=== PATIENT | female | born 1955 | race Caucasian/White ===

== ENCOUNTER 2020-03-24 18:47 | Emergency (ER) | payer BC ==
--- NOTE | 2020-03-24 19:07 | ER Document Report ---
ED Medical Screen (RME) - General Chief Complaint: Chest Pain > 30 Stated Complaint: CHEST PAIN Time Seen by Provider: 03/24/20 19:02 Mode of Arrival: Ambulatory Information source: Patient Notes: 64-year-old female presents to ED for complaint of chest pressure and heaviness between 5 and 530 this evening. She states that now she has a shakiness like she is got a fever but she does not have a fever she still feels pressure in her chest she had numbness and tingling down her left arm to her fingers. Denies any history of heart attacks, she states that the doctor just put her on lisinop ril for high blood pressure. She does not know how long she is added but she was just diagnosed. Denies history of high cholesterol. Denies any family history of [place]. I have greeted and performed a rapid initial assessment of this patient. A comprehensive ED assessment and evaluation of the patient, analysis of test results and completion of medical decision making process will be conducted by an additional ED providers. Past Medical History - General Information source: Patient - Social History Cigarette use (# per day): No Frequency of alcohol use: Social Drug Abuse: None Occupation: Retired Lives with: Family Family history: Reviewed & Not Pertinent - Past Medical History Cardiac Medical History: Reports: Hx Hypertension Pulmonary Medical History: Reports: Hx Asthma, Hx Bronchitis, Hx Pneumonia EENT Medical History: Reports: None Neurological Medical History: Reports: None Endocrine Medical History: Reports: None Renal/ Medical History: Reports: None Malignancy Medical History: Reports: Hx Skin Cancer - Is also GI Medical History: Reports: Hx Gastroesophageal Reflux Disease, Hx Colonoscopy, Hx Endoscopy Musculoskeltal Medical History: Reports None Skin Medical History: Reports None Psychiatric Medical History: Reports: None Traumatic Medical History: Reports: None Infectious Medical History: Reports: None Past Surgical History: Reports: Hx Hysterectomy, Hx Tubal Ligation - Immunizations Immunizations up to date: No Hx Diphtheria, Pertussis, Tetanus Vaccination: No History of Pneumococcal Vaccine: No History of Influenza Vaccine for 12/2018 - 06/2019 Season: Yes Physical Exam - Vital signs Vitals: Temp Pulse Resp BP Pulse Ox 98.5 F 86 20 174/102 H 98 03/24/20 18:52 03/24/20 18:52 03/24/20 18:52 03/24/20 18:52 03/24/20 18:52 Course - Vital Signs Vital signs: Temp Pulse Resp BP Pulse Ox 98.5 F 86 20 174/102 H 98 03/24/20 18:52 03/24/20 18:52 03/24/20 18:52 03/24/20 18:52 03/24/20 18:52
--- NOTE | 2020-03-24 19:07 | EKG REPORT ---
SEVERITY:- ABNORMAL ECG - SINUS RHYTHM PROBABLE LEFT ATRIAL ABNORMALITY NONSPECIFIC REPOL ABNORMALITY, DIFFUSE LEADS : Confirmed by: Flex Nobles MD 24-Mar-2020 19:06:50
[2020-03-24 19:31] LABS: ABSOLUTE EOSINOPHILS # (AUTO) 0.2 10^3/uL (0.0-0.6); ABSOLUTE LYMPHOCYTES (AUTO) 3.6 10^3/uL (0.5-4.7); ABSOLUTE MONOCYTES (AUTO) 0.6 10^3/uL (0.1-1.4); ABSOLUTE NEUT (AUTO) 2.6 10^3/uL (1.7-8.2); BASOPHILS % (AUTO) 0.5 % (0-2); EOSINOPHILS % (AUTO) 2.2 % (0-6); HEMATOCRIT 36.7 % (36.0-47.0); HEMOGLOBIN 12.5 g/dL (12.0-15.5); MEAN CORPUSCULAR HEMOGLOBIN 30.7 pg (27.0-33.4); MEAN CORPUSCULAR HGB CONC 34.1 g/dL (32.0-36.0); MEAN CORPUSCULAR VOLUME 90 fl (80-97); PLATELET COUNT 330 10^3/uL (150-450); RED BLOOD COUNT 4.07 10^6/uL (3.72-5.28); RED CELL DISTRIBUTION WIDTH 11.7 % (11.5-14.0); SEGMENTED NEUTROPHILS % (AUTO) 36.3 % (42-78); TOTAL CELLS COUNTED % (AUTO) 100 %
[2020-03-24 19:47] LABS: ALBUMIN 4.7 g/dL (3.5-5.0); ALKALINE PHOSPHATASE 59 U/L (38-126); ANION GAP 6 (5-19); ASPARTATE AMINO TRANSFERASE 26 U/L (14-36); BILIRUBIN,DIRECT 0.1 mg/dL (0.0-0.4); BILIRUBIN,TOTAL 0.3 mg/dL (0.2-1.3); BLOOD UREA NITROGEN 16 mg/dL (7-20); CALCIUM 10.1 mg/dL (8.4-10.2); CARBON DIOXIDE 35 mmol/L (22-30); CHLORIDE 99 mmol/L (98-107); GLUCOSE 100 mg/dL (75-110); POTASSIUM 4.3 mmol/L (3.6-5.0); TOTAL PROTEIN 7.6 g/dL (6.3-8.2)
--- NOTE | 2020-03-24 20:25 | RADIOLOGY REPORT (SQ) ---
EXAM DESCRIPTION: XR CHEST 2 VIEWS COMPLETED DATE/TME: 03/24/2020 19:47 CLINICAL HISTORY: 64 years, Female, Chest pain radiating down the left arm COMPARISON: None. NUMBER OF VIEWS: 2 TECHNIQUE: Views of the chest were obtained LIMITATIONS: None. FINDINGS: The heart size is within normal limits. Aortic calcifications are noted. There is mild basilar linear atelectasis or scarring. There is no airspace consolidation. Is a 6 mm nodular opacity within the periphery of the right upper lung zone, second anterior and fourth posterior intercostal spaces. This nodule is relatively dense and could represent a calcified granuloma, however more definitive catheterization with chest CT is recommended to exclude a noncalcified nodule. There is no evidence of pleural effusion or pneumothorax. No significant bony abnormality is seen. IMPRESSION: Small nodular opacity periphery of the right upper lung zone. Additional evaluation with chest CT is recommended. copyright 2010 [employer]- All Rights Reserved
--- NOTE | 2020-03-24 21:36 | ER Document Report ---
ED General - General Chief Complaint: Chest Pain Stated Complaint: CHEST PAIN Time Seen by Provider: 03/24/20 19:02 Primary Care Provider: DOYLE CALDERON FNP [Primary Care Provider] - Follow up as needed Mode of Arrival: Ambulatory - [facility] Notes: 64-year-old female presents with chest pain. Patient states this evening between 5-5:30 PM she developed left-sided/central chest pain described as a pressure and heaviness. The heaviness radiated down her left arm and caused heidy e tingling. She states that she additionally felt as if she was going to faint and her legs "felt woozy", she did not have any loss of consciousness. States that she was lying on the couch when the chest pain started. She states she has ongoing heaviness. Denies shortness of breath. She denies previous cardiac history. States she has a history of high blood pressure, takes 10 mg lisinopril which is a fairly recent new medication. She denies history of diabetes. She is a non-smoker. She denies a family history of cardiac disease. - Related Data Allergies/Adverse Reactions: No Known Allergies Allergy (Unverified 03/24/20 19:35) Past Medical History - General Information source: Patient - Social History Smoking Status: Never Smoker Cigarette use (# per day): No Frequency of alcohol use: Occasional Drug Abuse: None Occupation: Retired Lives with: Family Family History: denies: CAD - Past Medical History Cardiac Medical History: Reports: Hx Hypertension Pulmonary Medical History: Reports: Hx Asthma, Hx Bronchitis, Hx Pneumonia EENT Medical History: Reports: None Neurological Medical History: Reports: None Endocrine Medical History: Reports: None Renal/ Medical History: Reports: None Malignancy Medical History: Reports: Hx Skin Cancer - Is also GI Medical History: Reports: Hx Gastroesophageal Reflux Disease, Hx Colonoscopy, Hx Endoscopy Musculoskeletal Medical History: Reports None Skin Medical History: Reports None Psychiatric Medical History: Reports: None Traumatic Medical History: Reports: None Infectious Medical History: Reports: None Past Surgical History: Reports: Hx Hysterectomy, Hx Tubal Ligation - Immunizations Immunizations up to date: No Hx Diphtheria, Pertussis, Tetanus Vaccination: No History of Pneumococcal Vaccine: No Review of Systems - Review of Systems Constitutional: denies: Fever EENT: No symptoms reported Cardiovascular: Chest pain Respiratory: denies: Short of breath Gastrointestinal: denies: Abdominal pain, Nausea, Vomiting Genitourinary: No symptoms reported Female Genitourinary: No symptoms reported Musculoskeletal: No symptoms reported Skin: No symptoms reported Hematologic/Lymphatic: No symptoms reported Neurological/Psychological: Tingling Physical Exam - Vital signs Vitals: Temp Pulse Resp BP Pulse Ox 98.5 F 86 20 174/102 H 98 03/24/20 18:52 03/24/20 18:52 03/24/20 18:52 03/24/20 18:52 03/24/20 18:52 - General General appearance: Appears well, Alert In distress: None - HEENT Head: Normocephalic, Atraumatic Extraocular movements intact: Yes Pupils: PERRL - Respiratory Chest status: Nontender Breath sounds: Normal - Cardiovascular Rhythm: Regular Heart sounds: Normal auscultation Normal capillary refill: Yes - Abdominal Tenderness: Nontender - Extremities General lower extremity: No: Edema - Neurological Neuro grossly intact: Yes Cognition: Normal Orientation: AAOx4 Speech: Normal Cranial nerves: Normal Motor strength normal: LUE, RUE, LLE, RLE Sensory: Normal - Psychological Associated symptoms: Normal affect - Skin Skin Temperature: Warm Course - Re-evaluation Re-evalutation: 64-year-old female history of hypertension with no previous cardiac history here for chest pressure onset at rest. On exam patient is alert and well-appearing, she is hypertensive but otherwise hemodynamically stable. Heart RRR, lungs clear, neurologically intact. Her initial EKG from triage is significant for depressions in V2 through V6 with T wave inversions II/III/aVL, no STEMI. Highly concern for cardiac etiology at this time. Her age and history of hypertension put her at risk. Will start with aspirin and nitro and assess response, serial EKGs. Will obtain CTA chest to rule out PE and dissection, though less favored at this time. 03/24/20 22:54 Repeat EKG obtained after nitro and improvement in chest pain, does show dynamic changes, depressions V3 through V6 are less prominent 03/24/20 23:35 Interestingly, troponin is neg x2. Second trop taken 5h post onset of pain Discussed case with Dr. Dumont component technician for cardiology. States that patient ultimately needs a cath given her dynamic EKG changes. Could potentially have a nuclear stress test, however unable to be performed here tomorrow. 03/24/20 23:47 Patient updated on results and plan so far, states that chest pain has greatly improved, though still slightly present, will try another nitro. Remains hemodynamically stable. 03/24/20 23:50 Called [facility] transfer center to discuss with cardiology component technician 03/25/20 00:15 Patient accepted in transfer by Dr King 03/25/20 00:30 CTA chest report available. No thoracic dissection or aneurysm, no PE. Pulmonary nodules present right middle and lower lobe. Patient was updated on the results of the CTA, she was advised to have outpatient follow-up in 6 months for repeat scan. She verbalized understanding. She remains hemodynamically stable. 03/25/20 03:11 Third troponin negative 03/25/20 03:17 Care to be turned over, pending bed assignment at [facility] - Vital Signs Vital signs: Temp Pulse Resp BP Pulse Ox 98.5 F 86 20 174/102 H 99 03/24/20 18:52 03/24/20 18:52 03/24/20 18:52 03/24/20 18:52 03/24/20 19:08 - Laboratory Results Result Diagrams: 03/24/20 19:15 03/24/20 19:15 Laboratory Results Interpreted: 03/24/20 03/24/20 19:15 19:15 Lymph % (Auto) 52.0 H Seg Neutrophils % 36.3 L Carbon Dioxide 35 H Critical Laboratory Results Reviewed: No Critical Results - Radiology Results Critical Radiology Results Reviewed: No Critical Results - EKG Interpretation by Me Additional EKG results interpreted by me: EKG as interpreted by me. Sinus rhythm, rate 81. Narrow QRS, QTC within normal limits. ST segment depression V3 through V6. T wave inversions II, III, aVF. No STEMI. No previous available for comparison. 03/24/20 22:54 Repeat EKG obtain status post nitro. Normal sinus rhythm, rate 65, narrow QRS, QTC within normal limits. ST segment depression less prominent V3 through V6. No STEMI. Discharge - Discharge Clinical Impression: Unstable angina Disposition: [facility] Referrals: DOYLE CALDERON FNP [Primary Care Provider] - Follow up as needed
[2020-03-24] MEDS ORDERED: ASPIRIN 81 MG TABLET, CHEWABLE PO ONE (21:40)
[2020-03-24] MEDS: NITROGLYCERIN 0.4 MG/TAB 25 TAB/BOTTLE SL PRN ×2 (22:31→23:49)
--- NOTE | 2020-03-24 23:59 | RADIOLOGY REPORT (SQ) ---
EXAM DESCRIPTION: CTA CHEST CLINICAL HISTORY: 64 years Female; central CP, HTN, eval dissection. CREAT 0.58 TECHNIQUE: CT angiogram of the chest using intravenous contrast.. MIP reconstructions were performed. All CT scans at this facility use dose modulation, iterative reconstruction, and/or weight based dosing when appropriate to reduce radiation dose to as low as reasonably achievable. COMPARISON: None. FINDINGS: Chest: Vascular: There is minimal plaque in the aorta. No aneurysm or dissection. Proximal great vessels are normal. Pulmonary arteries are well opacified and appear normal. No pulmonary embolization. Lungs: Lungs are clear. No focal consolidation. No pneumothorax or pleural effusion. A 2 mm pulmonary nodules present in the right middle lobe. In the right lower lobe is a 6 mm pulmonary nodule. Mediastinum: Heart size is within normal limits. There is a small sliding hiatal hernia. No mediastinal or hilar lymphadenopathy. Thyroid gland appears normal. Bones and soft tissues: Unremarkable Upper Abdomen: Visualized portion of the upper abdomen is unremarkable. IMPRESSION: 1. No evidence of thoracic aortic dissection or aneurysm. 2. No pulmonary artery embolization. 3. No pneumonia or edema. 4. 6 mm right lower lobe pulmonary nodule. 2017 Fleischner Society Recommendations for Single Solid Lung Nodule: Follow-up based on size (average of long- and short-axis diameters) 6-8 mm Low-Risk Patient: Non-contrast chest CT at 6-12 months, then consider non-contrast chest CT at 18-24 months. 6-8 mm High-Risk Patient: Non-contrast chest CT at 6-12 months, then non-contrast chest CT at 18-24 months. Note: These guidelines do not apply to patients younger than 35 years, immunocompromised patients, and patients with cancer. F/u in patients with significant comorbidities as clinically warranted. For lung cancer screening, adhere to Lung-RADS guidelines. Reference: Radiology. 2017 Moe; 284(1):228-243
--- NOTE | 2020-03-25 08:06 | EKG REPORT ---
SEVERITY:- BORDERLINE ECG - SINUS RHYTHM BORDERLINE T ABNORMALITIES, INFERIOR LEADS : Confirmed by: Flex Nobles MD 25-Mar-2020 08:04:58
[2020-03-25 08:41] VITALS: BP 176/95
== END 2020-03-25 08:41 | disposition short-term general hospital (02) ==
LOC: ER 18:47
DX: I20.0 Unstable angina (principal); R07.9 Chest pain, unspecified; M79.602 Pain in left arm; R20.0 Anesthesia of skin; R42 Dizziness and giddiness; I10 Essential (primary) hypertension; Z79.899 Other long term (current) drug therapy
CPT/HCPCS: 93005; 99285; 36415; 85025; 0241U ×4; 80053; 84484; 71046; 71275; 93010; C9803